=== PATIENT | female | born 1945 | race Caucasian/White ===

== ENCOUNTER 2018-06-06 06:48 | Day surgery (SDC) | payer MEDICARE ==
--- NOTE | 2018-06-06 10:30 | OP ---
DATE OF PROCEDURE: 06/06/2018 MEDICAL ASSISTANT PER DIEM: With no boilermaker's assistant. INDICATION: Hydrocephalus. DIAGNOSIS: Hydrocephalus. PROCEDURE: Capped ventriculoperitoneal shunt. ANESTHESIA: None. DESCRIPTION OF PROCEDURE: In the day stay area, right frontal region of her scalp was prepped and draped at the location of her shunt reservoir. A butterfly needle was carefully placed in a sterile technique into the reservoir and a total of 45 mL of clear spinal fluid was withdrawn. The needle was removed and the area cleansed. There were no known procedural complications. Job ID: [id number]
== END 2018-06-06 08:45 | disposition home or self-care (01) ==
LOC: SDC 06:48
PROVIDERS: ATTEND Neurological Surgery
PROC: 00J Central Nervous System and Cranial Nerves, Inspection (ICD-10-PCS; principal; 2018-06-06)
DX: G91.9 Hydrocephalus, unspecified (principal)
CPT/HCPCS: 62272

== ENCOUNTER 2018-06-23 20:44 | Inpatient (IN) | payer MEDICARE ==
[2018-06-23 21:32] LABS: #Basophils 0.1 thou/uL (0.0-0.2); #Eosinphils 0.1 thou/uL (0.0-0.7); #Lymphocytes 2.2 thou/uL (1.20-3.40); #Monocytes 0.6 thou/uL (0.11-0.59); #Neutrophils 8.1 thou/uL (1.40-6.50); %Basophils 0.6 % (0.0-1.0); %Eosinophils 0.8 % (0.0-10.0); %Monocytes 5.5 % (0.0-10.0); Hemoglobin 15.3 g/dL (12.0-16.0); Mean Corpuscular HGB CONC 32.4 g/dL (32.0-36.0); Mean Corpuscular Hemoglobin 29.4 pg (27.0-31.0); Mean Corpuscular Volume 90.9 fL (78.0-98.0); Mean Platelet Volume 6.8 fL (7.4-10.4); Platelet Count 373 thou/uL (130-400); RBC Distribution Width 12.1 % (11.5-14.5); White Blood Cell (WBC) Count 11.1 thou/uL (4.8-10.8)
[2018-06-23 21:53] LABS: ALT (SGPT) 8 U/L (8-55); AST (SGOT) 12 U/L (5-34); Alkaline Phosphatase 77 U/L (40-150); Anion Gap 14 mmol/L (10-20); BUN (Urea Nitrogen) 18 mg/dL (9.8-20.1); Bilirubin, Total 0.4 mg/dL (0.2-1.2); Calc. Creatinine Clearance 0 mL/min (70-130); Calcium 9.7 mg/dL (7.8-10.44); Carbon Dioxide 21 mmol/L (23-31); Chloride 109 mmol/L (98-107); Estimated GFR-MDRD 66; Globulin 3.4 g/dL (2.4-3.5); Glucose 105 mg/dL (83-110); Potassium 4.5 mmol/L (3.5-5.1); Protein, Total 7.4 g/dL (6.0-8.3); Sodium 139 mmol/L (136-145)
[2018-06-23 22:13] LABS: CK (CPK) 47 U/L (29-168); Lipase 33 U/L (8-78)
[2018-06-23 22:15] LABS: Bacteria/HPF 4+ HPF (None Seen); Bilirubin Negative (Negative); Blood, Urine Moderate (Negative); Clarity TURBID (Clear); Glucose, Urine (Dipstick) Negative (Negative); Leukocyte Moderate (Negative); Nitrite Positive (Negative); Protein, Urine (Dipstick) Negative (Neg-Trace); Specific Gravity, Urine 1.024 (1.002-1.036); Squamous Epithelial 0-3 HPF (0-3); Urobilinogen 0.2 mg/dL (0.2-1.0); Yeast-AUWi Flag 5.6 (0-25.0)
[2018-06-23 22:24] LABS: Hyaline Casts/LPF 0-3 HYALINE CAST LPF (0-3 Hyaline)
[2018-06-23] MEDS ORDERED: cefTRIAXone\\ROCEPHIN 1 GM VIAL ONE (22:38)
--- NOTE | 2018-06-23 23:12 | RAD ---
PORTABLE AP CHEST RADIOGRAPH: Date: 06-23-18 History: Altered mental status, weakness. Comparison: None available. FINDINGS: Cardiac silhouette is magnified by projection. The pulmonary vasculature is within normal limits. Min imal patchy density seen at the lateral left lung base which may be related to focal areas of pneumon ia or aspiration pneumonitis. The lungs are otherwise clear. Ventriculoperitoneal shunt catheter seen overlying the chest. Vascular calcifications seen in the thoracic aorta. IMPRESSION: Pneumonia versus aspiration pneumonitis left lung base. Follow up to resolution is recommended. POS: MARTIN
--- NOTE | 2018-06-24 00:39 | PDOC.FPRHP ---
- History of Present Illness Chief Complaint: AMS, catatonic History of Present Illness: 72 yo female here for decreased activity over the past 2 days. Daughter, Jessica, is providing the history as patient is not answering questions or following commands. Patient Has history of ventricular shunt for for what sounds like hydrocephalus in 2009. Daughter reports that the current worsening started in 2017 when she received a new January 2018. Since that time, she has had episodes altered mentation, sometimes she is able to have abbreviated conversations, other times she refuses to get out of bed and answer questions. She is a patient of Dr. Morillo since January 2018 as PCP and has also been seeing Dr. Linder for shunt. Apparently she had about 45cc fluid drained at the end of May 2018 after having problems with activity level. After that, her mood and activity improved but gradually became less and less interactive. During this time she has had decreased eating and fluid intake. ED Course: in the ER, patient received rocephin for UTI and 1L NS. - Allergies/Adverse Reactions Allergies Allergy/AdvReac Type Severity Reaction Status Date / Time No Known Drug Allergies Allergy Verified 06/24/18 05:20 - Home Medications Medication Instructions Recorded Confirmed Type Citalopram Hydrobromide 06/24/18 History [Citalopram HBr] - History PMHx: hydrocephaly, depression PSHx: ACCESS ASSOC shunt 2009 then again 2017 FHx:none Social: lives with daughter - Review of Systems ROS unobtainable: due to mental status - Vital signs BP: 143/88 HR: 68 RR: 20 Tmax: 99.1 Pox: 94% on RA Wt: 86kg - Physical Exam Constitutional: well developed -Constitutional: limited exam 2/2 patient noncooporation with following commands -HEENT: difficulty to examine 2/2 patient noncompliance Neck: no JVD Heart: RRR, normal S1/S2, no murmurs/rubs/gallops Lungs: CTAB, no respiratory distress Abdomen: bowel sounds present -Abdomen: guarding, patient writhing when palpating Musculoskeletal: normal structure Heme/Lymphatic: no unusual bruising or bleeding -Psychiatric: nonresponsive to questions or commands FMR H&P: Results - Labs Result Diagrams: 06/23/18 21:26 06/23/18 21:26 Lab results: WBC 11.1 thou/uL (4.8-10.8) H 06/23/18 21:26 Hgb 15.3 g/dL (12.0-16.0) 06/23/18 21:26 Hct 47.2 % (36.0-47.0) H 06/23/18 21:26 MCV 90.9 fL (78.0-98.0) 06/23/18 21:26 Plt Count 373 thou/uL (130-400) 06/23/18 21:26 Neutrophils % 73.0 % (42.0-75.0) 06/23/18 21:26 Sodium 139 mmol/L (136-145) 06/23/18 21:26 Potassium 4.5 mmol/L (3.5-5.1) 06/23/18 21:26 Chloride 109 mmol/L (98-107) H 06/23/18 21:26 Carbon Dioxide 21 mmol/L (23-31) L 06/23/18 21:26 BUN 18 mg/dL (9.8-20.1) 06/23/18 21:26 Creatinine 0.85 mg/dL (0.6-1.1) 06/23/18 21:26 Glucose 105 mg/dL (83-110) 06/23/18 21:26 Lactic Acid 1.0 mmol/L (0.5-2.2) 06/23/18 21:26 Calcium 9.7 mg/dL (7.8-10.44) 06/23/18 21:26 Total Bilirubin 0.4 mg/dL (0.2-1.2) 06/23/18 21:26 AST 12 U/L (5-34) 06/23/18 21:26 ALT 8 U/L (8-55) 06/23/18 21:26 Alkaline Phosphatase 77 U/L (40-150) 06/23/18 21:26 Creatine Kinase 47 U/L (29-168) 06/23/18 21:26 B-Natriuretic Peptide 39.1 pg/mL (0-100) 06/23/18 21:26 Serum Total Protein 7.4 g/dL (6.0-8.3) 06/23/18 21:26 Albumin 4.0 g/dL (3.4-4.8) 06/23/18 21:26 Lipase 33 U/L (8-78) 06/23/18 21:26 Urine Ketones Negative mg/dL (Negative) 06/23/18 22:00 Urine Blood Moderate (Negative) H 06/23/18 22:00 Urine Nitrite Positive (Negative) H 06/23/18 22:00 Ur Leukocyte Esterase Moderate (Negative) H 06/23/18 22:00 Urine RBC 7-10 HPF (0-3) H 06/23/18 22:00 Urine WBC Greater Than 50-TNTC HPF (0-3) H 06/23/18 22:00 Ur Squamous Epith Cells 0-3 HPF (0-3) 06/23/18 22:00 Urine Bacteria 4+ HPF (None Seen) H 06/23/18 22:00 - Radiology Interpretation Chest x-ray Status: image reviewed by me (Radiologist read: pneumonia vs aspiration pneumonitis), report reviewed by me FMR H&P: A/P - Problem List (1) ACCESS ASSOC (ventriculoperitoneal) shunt status Current Visit: Yes Status: Acute (2) UTI (urinary tract infection) Current Visit: Yes Status: Acute (3) Depression Current Visit: Yes Status: Acute Code(s): F32.9 - MAJOR DEPRESSIVE DISORDER , SINGLE EPISODE, UNSPECIFIED - Plan #ACCESS ASSOC shunt malfunction -Frank (Neurosurgery PA with Dr. Linder) was consulted from the ER, will evaluate the patient in the morning -continue to monitor on stroke #UTI -given rocephin in the ER -urine and blood cultures pending -will continue with rocephin for now #depression -continue home meds #pneumonia vs aspiration pneumonitis -Left lateral lobe involvement -will get procalcitonin -concern for aspiration vs involvement with the shunt, however the shunt stays on the right side of the chest down into the abd so lower suspicion for involvement -possibly start on unasyn pending procal Disposition/LOS: admit to stroke at least 2 midnights FMR H&P: Upper Level - Plan Date/Time: 06/24/18 0030 Addendum - Attending - Attending Attestation Date/Time: 06/23/18 9310 I personally evaluated the patient and discussed the management with Dr. Croft I agree with the History, Examination, Assessment and Plan documented above with any addition or exceptions noted below. 72 yo female with history of hydrocephalus requiring ACCESS ASSOC shunt presents for AMS for > 48 hours. Daughter is historian and healthcare administration internship. Reports patient has good days and bad days. Sometimes she is able to carry conversations and others she is not aware of anything. Reports decline started in Jan 2017 with replacement of ACCESS ASSOC shunt. Has required ACCESS ASSOC draining on a few occasions. Last performed on due to malfunctioning. Notes cognitive improvement with draining. Denies fever, chills , URI symptoms, symptoms, and GI symptoms. VS reviewed. Labs reviewed. Imaging reviewed. Will admit to medical. Dr. Linder to see in AM. Will follow up on his recommendations. ACCESS ASSOC shunt follow through intact and appears to be functional. Large calcified pelvic mass. Possible fibroid. Would obtain TVUS to further evaluate vs MRI. Urine culture pending. Will treat with Rocephin. Monitor. Does not appear septic. Pro malgorzata WNL. Adjust home meds as needed. Tom
[2018-06-24] MEDS: Lactated Ringer's 1,000 ML IV SCH ×3 (05:15→22:57)
--- NOTE | 2018-06-24 05:55 | PDOC.FM ---
- Subjective Subjective: Patient answers with yes/no nods. Denies any pain this AM. - Objective Result Diagrams: 06/23/18 21:26 06/23/18 21:26 Phys Exam - Physical Examination appears drowsy and lethargic, unable to follow simple commands dry mucous membranes, difficult to visualize Neck: no nodes, supple Respiratory: no wheezing, clear to auscultation bilateral Cardiovascular: RRR, no significant murmur Gastrointestinal: soft, non-tender, no distention, positive bowel sounds Musculoskeletal: no edema, pulses present Deviation from normal: lethargic, non-verbal responses (nods/shakes head only) Dx/Plan (1) HYDRAULIC BILLET MAKER (ventriculoperitoneal) shunt status Status: Acute (2) UTI (urinary tract infection) Status: Acute (3) Depression Code(s): F32.9 - MAJOR DEPRESSIVE DISORDER, SINGLE EPISODE, UNSPECIFIED Status : Chronic - Plan Plan: HYDRAULIC BILLET MAKER shunt malfunction - Frank (Neurosurgery PA with Dr. Linder) was consulted from the ER 06/23, will evaluate the patient this morning, appreciate recommendations - monitor on stroke unit - CT head shows ventriculomegaly - NPO, LR @ 150 ml/hr UTI -given rocephin in the ER -urine and blood cultures pending -will continue with IV rocephin Depression -continue home meds Pneumonia vs aspiration pneumonitis -Lungs BCTA on exam -Left lateral lobe involvement on CXR -Procalcitonin negative, hold antibiotic for now -Concern for aspiration vs involvement with the shunt, however the shunt stays on the right side of the chest down into the abd so lower suspicion for involvement Disposition/LOS: admit to stroke at least 2 midnights Code status: Full PCP: Ilia dvt ppx: lovenox
--- NOTE | 2018-06-24 07:10 | CT ---
CT HEAD WITHOUT CONTRAST: 06/23/2018 HISTORY: Altered mental status and weakness. COMPARISON: None available. FINDINGS: There is a ventriculoperitoneal shunt catheter, entering via a right frontal approach, with the tip t erminating in the most anterior aspect of the third ventricle. There is evidence of ventriculomegaly with dilatation of the lateral ventricles, as well as the third ventricle. There is diminished attenuation in the periventricular white matter, which is nonspecific, but may be attributable to chronic small vessel ischemic changes. This is not thought to be related to transep endymal flow of CSF. No acute cortical infarction or hemorrhage is seen. There is no midline shift or mass effect. The visualized paranasal sinuses and mastoid air cells are clear. No calvarial fracture is seen. IMPRESSION: Ventriculomegaly/hydrocephalus with dilatation of the lateral ventricles, as well as the third ventri gurmeet. Ventriculoperitoneal shunt catheter is noted in place, with the tip terminating at the anterior aspect of the third ventricle. POS: MARTIN
--- NOTE | 2018-06-24 07:14 | RAD ---
SHUNTOGRAM: 06/23/2018 HISTORY: Patient with ventriculoperitoneal shunt catheter I place and altered mental status. COMPARISON: None available. FINDINGS: There is a right-sided ventriculoperitoneal shunt catheter, entering in a right frontal approach. Th e ventriculoperitoneal shunt catheter appears intact throughout its course. The tip overlies the pelv is, although the tip is not well seen due to the catheter tip overlying a large calcification in the pelvis, probably related to a calcified uterine fibroid. There is atelectasis present at the left lung base. There is mild elevation of the right hemidiaphra gm. The bowel gas pattern is nonspecific. Phleboliths overly the pelvis. IMPRESSION: Right-sided ventriculoperitoneal shunt catheter, which does appear intact throughout its course. The tip overlies the pelvis, as described above. POS: MARTIN
[2018-06-24] MEDS ORDERED: Enoxaparin Sodium 40 MG/0.4 ML SYRINGE ONE (08:57)
[2018-06-24] MEDS: Enoxaparin Sodium 40 MG/0.4 ML SYRINGE SC SCH (09:03)
--- NOTE | 2018-06-24 12:50 | HP ---
HISTORY OF PRESENT ILLNESS: I have examined the patient. I have discussed the case with Dr. Jorge Croft. Ms. Roberts is a 72-year-old white female, who in the past has had a PAPER COATING SUPERVISOR shunt placement for hydrocephalus. For the last 2 days, she has been experiencing not answering questions or following commands. She was brought to the ER, where CT found some ventricular hypertrophy and Neurosurgery had been consulted. PHYSICAL EXAMINATION: VITAL SIGNS: Her blood pressure is 140/80, her heart rate is 65 and regular, she is afebrile, her room air pulse ox is 94%. GENERAL: She will not answer questions and seems to be somewhat confused. EARS, NOSE, AND THROAT: No erythema or exudate. NECK: Supple. CARDIAC: Heart rhythm regular. No gallop or murmur noted. LUNGS: Clear. No rales or wheezes. ABDOMEN: Flat and soft. No guarding, rebound, or rigidity. NEUROLOGIC: There are no focal deficits, but the patient does seem confused and unable to understand questions put to her. LABORATORY DATA: CBC; white count 11,100, hemoglobin 15.3, and hematocrit 47.2 with an MCV of 91. Chemistries; sodium is 139, potassium 4.5, chloride 109, bicarb 21, BUN 18, and creatinine 0.85. Her brain CT shows ventriculomegaly/hydrocephalus with dilatation of the lateral ventricles as well as the 3rd ventricle. The PAPER COATING SUPERVISOR shunt is noted to be in place with the tip terminating at the anterior aspect of the 3rd ventricle. ASSESSMENT: Mental confusion and altered mental status, possibly secondary to ventriculoperitoneal shunt catheter obstruction. PLAN: We have consulted Neurosurgery and await the recommendations. Job ID: [id number]
--- NOTE | 2018-06-24 13:31 | CON ---
DATE OF CONSULTATION: 06/24/2018 SERVICE: Neurosurgical Service. HISTORY OF PRESENT ILLNESS: Ms. Roberts is a 72-year-old woman, who was brought in to [facility] late last evening for change in level of consciousness and altered mental status. She was found to have UTI, but is also known to our practice for chronic hydrocephalus with possible shunt malfunction. Dr. Linder performed a high-volume shunt tap procedure in day stay roughly two weeks ago that according to the daughter, resulted in profound improvement in some of her level of consciousness and cognitive function and social interaction. For me at bedside today, she seems to be at her baseline state from before that procedure where she is mostly flat affected with only single word responses, although appropriate to my questions. She does tend to make eye contact with me at any point. She is able to move all four extremities just reluctantly and infrequently. Plan after her procedure from two weeks ago was to have her back to the hospital at some point for external ventricular drain placement to attempt to drain enough fluid from her ventricles to hopefully initiate whatever little compliances left in the ventricular mckee to begin shunting on her own. We had not yet had her back in followup, so the recommendation at this time is that we proceed with this particular procedure tomorrow. She will need to be admitted to the ICU overnight, and then tomorrow, we will plan to place EVD for intermittent drainage. We will discuss with Dr. Linder. Job ID: [id number]
[2018-06-24 15:26] VITALS: BMI 32.5
[2018-06-24] MEDS ORDERED: cefTRIAXone\\ROCEPHIN 1 GM in Sodium Chloride 0.9% 100 ML IVPB SCH (21:00)
--- NOTE | 2018-06-25 06:23 | PDOC.FM ---
- Subjective Subjective: Patient is more alert, answering questions in full sentences today, states she is nervous about the procedure today. Denies pain - Objective Vital Signs & Weight: Vital Signs (12 hours) Temp Pulse Resp BP Pulse Ox 06/25/18 04:02 97.8 F 61 20 128/76 96 06/25/18 00:00 98.2 F 60 20 133/71 97 06/24/18 20:11 97.6 F 76 20 112/70 96 Weight Weight 86 kg Result Diagrams: 06/23/18 21:26 06/23/18 21:26 Phys Exam - Physical Examination Constitutional: NAD Mentation seems much more normal this morning, speaks full sentences Neck: no nodes, supple Respiratory: no wheezing, clear to auscultation bilateral Cardiovascular: RRR, no significant murmur Gastrointestinal: soft, non-tender, no distention, positive bowel sounds Musculoskeletal: no edema, pulses present Neurological: moves all 4 limbs Psychiatric: normal affect Deviation from normal: Alert to person, city (not hospital), not oriented to time (month, day,year Skin: no rash, normal turgor Dx/Plan (1) INTERNATIONAL TRADE COMPLIANCE MANAGER (ventriculoperitoneal) shunt status Status: Acute (2) UTI (urinary tract infection) Status: Acute (3) Depression Code(s): F32.9 - MAJOR DEPRESSIVE DISORDER, SINGLE EPISODE, UNSPECIFIED Status : Chronic - Plan Plan: INTERNATIONAL TRADE COMPLIANCE MANAGER shunt malfunction - CT head shows ventriculomegaly - Frank (Neurosurgery PA with Dr. Linder) was consulted from the ER 06/23, will evaluate the patient this morning, appreciate recommendations -External Ventricular Drain placement today - NPO, LR @ 150 ml/hr - Patient's mentation much more alert today, speaking in full sentences and answering appropriately, responds to commands. AOx1 UTI -given rocephin in the ER -blood cultures pending - urine culture not collected, consider redrawing today -will continue with IV rocephin Depression -continue home meds Pneumonia vs aspiration pneumonitis -Lungs BCTA on exam -Left lateral lobe involvement on CXR -Procalcitonin negative, hold antibiotic for now -Concern for aspiration vs involvement with the shunt, however the shunt stays on the right side of the chest down into the abd so lower suspicion for involvement Large calcification in Pelvis - Seen on shuntogram, likely 2/2 calcified uterine fibroid - Recommend outpatient follow up Disposition/LOS: > 2 midnights Code status: Full PCP: Ilia dvt ppx: lovenox
[2018-06-25] MEDS: Lactated Ringer's 1,000 ML IV SCH ×2 (06:52→11:05)
--- NOTE | 2018-06-25 09:52 | PRG ---
DATE OF SERVICE: 06/25/2018 SUBJECTIVE: Ms. Tisha Roberts is a 72-year-old female, known to us for an outpatient evaluation for normal-pressure hydrocephalus. She had a shunt placed on the right side and has been revised twice, all of these were performed elsewhere. Despite placement of her shunt and shunt setting at zero, she continues to have ventriculomegaly. Clinically, she oftentimes is minimally interactive. She will have 1 word answers on occasion. I performed a high-volume tap of her shunt a few weeks ago, where she had dramatic overall improvement in her symptoms. At that time, I discussed with her and her daughter, a placement of a ventriculostomy to try to reduce the size of her ventricles as I believe the underlying problem is poor ventricular compliance rather than a malfunctioning shunt. She was admitted due to UTI 2 days ago. We moved her to the unit today for the purposes of the placement of this ventriculostomy. I have discussed this in detail with the patient as well as her daughter. I have also discussed with him all risks, benefits, and alternatives to treatment, and they have offered informed consent. The plan will be to obtain her in the ICU over the next 2 to 3 days while we drain spinal fluid and obtain serial CT imaging. Job ID: [id number]
--- NOTE | 2018-06-25 11:55 | PRG ---
DATE OF SERVICE: 06/25/2018 SUBJECTIVE: Ms. Roberts has just returned from placement of a ventricular drain. She is still very somnolent from general anesthesia. Her vital signs are stable. We will continue to follow with neurosurgery service. Job ID: [id number]
[2018-06-25] MEDS ORDERED: CEFAZOLIN 2 GM in Sodium Chloride 0.9% 100 ML IVPB SCH ×2 (12:00→18:00)
[2018-06-25] MEDS: Enoxaparin Sodium 40 MG/0.4 ML SYRINGE SC SCH (12:37)
--- NOTE | 2018-06-25 13:43 | OP ---
DATE OF PROCEDURE: 06/25/2018 PROCEDURE PERFORMED: External ventriculostomy placement. INDICATION: Hydrocephalus and altered mental status. CLINICIAN: Nico Marie PA-C SEDATION: Conscious sedation with anesthesia, Estela Rockwell CRNA. DESCRIPTION OF PROCEDURE: Ms. Roberts was administered IV conscious sedation for the purpose of the procedure. A time-out was performed preprocedurely and Rosalina's point was identified on the left frontal scalp. This was marked and then infiltrated with 1% lidocaine 1.5 mL. A 15 blade knife was used to incise the skin down to the level of the skull. A cranial twist drill was used to create a cranial twist jake hole at Rosalina's point. The dura was pierced with blunt instrumentation and an external ventriculostomy catheter was placed at a depth of 6 cm with a slow egress of clear CSF. This was attached to the [place] drain and adhered to the scalp with 2-0 silk. The wound was closed with 3-0 Ethilon. The [place] drain set at 0 cm of water and leveled out to the level of the tragus. The patient started to slowly arouse at the end of the procedure. Blood loss was minimal. The patient tolerated the procedure well. At the end of this procedure, secondary to extraordinarily low-pressure conditions within the ventricle, sterile technique was used and 30 mL of CSF were drained actively via the port of the [place] drainage system. Job ID: [id number]
[2018-06-25] MEDS: CEFAZOLIN 2 GM in Premix Bag 1 BAG IVPB SCH (17:44)
--- NOTE | 2018-06-26 00:01 | CON ---
DATE OF CONSULTATION: 06/25/2018 HISTORY OF PRESENT ILLNESS: Ms. Roberts is a 72-year-old female. She had a ventriculoperitoneal shunt placed in the past for hydrocephalus. Apparently, she has had a change in her mental status, was felt to have shunt malfunction and subsequently has been admitted. She was transferred to the ICU for external drain placement this morning. I was consulted to assist in her management in the ICU. When I saw her, she had been seen by Anesthesia and Neurosurgery and had a drain placed under conscious sedation. She has not been in the hospital here prior to this. She tells me that she had the shunt placed in [place]. She was actually eating lunch when I saw her. She may not be giving an accurate history about the location of the surgery originally for hydrocephalus. PAST MEDICAL HISTORY: Otherwise, unremarkable. SOCIAL HISTORY: She is a nonsmoker and nondrinker. FAMILY HISTORY: Unknown. ALLERGIES: SHE HAS NO REPORTED DRUG ALLERGIES. REVIEW OF SYSTEMS: 10 point review of systems completed, otherwise, negative. PHYSICAL EXAMINATION: GENERAL: She is surprisingly in no distress. She has an external drain in place. VITAL SIGNS: Heart rate 67, blood pressure 139/70, respiratory rate is 20, oximetry is 96%. HEENT: Pupils are equal. Sclerae are anicteric. She answers questions fairly promptly. She moves her extremities equally. HEAD: Unremarkable. NECK: Unremarkable. LUNGS: Clear. HEART: Regular rhythm. S1 and S2 are normal. ABDOMEN: Soft and nontender. EXTREMITIES: Without clubbing, cyanosis, or edema. LABORATORY DATA: White count 11.1, hemoglobin 15.3, platelets 373. Sodium 139, potassium 4.5, chloride 109, bicarb 29, BUN 18, creatinine 0.85. IMPRESSION: Malfunctioning ventriculoperitoneal shunt, now with an external drain in place, clinically improved by what the nurses tell me. We will be happy to follow the other physicians caring for. TIME SPENT: This is a 70-minute consult, with greater than 50% of the time spent on the unit coordinating care. Job ID: [id number] MTDD
[2018-06-26] MEDS: CEFAZOLIN 2 GM in Premix Bag 1 BAG IVPB SCH ×3 (02:57→17:27)
--- NOTE | 2018-06-26 06:23 | PDOC.FM ---
- Subjective Subjective: Patient arousable with shaking, but will not follow commands. Pulls sheet closer to her body when you try to arouse her. Will not answer questions. - Objective Vital Signs & Weight: Vital Signs (12 hours) Temp Pulse Ox 06/26/18 04:00 98.4 F 06/26/18 00:00 98.2 F 06/25/18 20:00 97.8 F 06/25/18 19:20 97 Weight Admit Weight 86 kg Weight 86 kg Most Recent Monitor Data Heart Rate from ECG 69 NIBP 110/69 NIBP BP-Mean 82 Respiration from ECG 17 SpO2 93 I&O: 06/24/18 06/25/18 06/26/18 06:59 06:59 06:59 Intake Total 1800 1892 Output Total 1979 Balance 1800 -88 Result Diagrams: 06/23/18 21:26 06/23/18 21:26 Phys Exam - Physical Examination Constitutional: NAD Respiratory: no wheezing, clear to auscultation bilateral Cardiovascular: RRR, no significant murmur Gastrointestinal: soft, non-tender, no distention Musculoskeletal: no edema, pulses present Does not follow commands,lethargic, arousable with shaking Skin: normal turgor, cap refill <2 seconds Dx/Plan (1) HOSEMAN (ventriculoperitoneal) shunt status Status: Acute (2) UTI (urinary tract infection) Status: Acute (3) Depression Code(s): F32.9 - MAJOR DEPRESSIVE DISORDER, SINGLE EPISODE, UNSPECIFIED Status : Chronic - Plan Plan: HOSEMAN shunt malfunction - CT head shows ventriculomegaly - Frank (Neurosurgery PA with Dr. Linder) was consulted from the ER 06/23, appreciate recommendations -External Ventricular Drain placed 06/25 -Patient will need monitoring in ICU for next 2-3 days - Repeat CT brain, read pending - Pt will not follow commands or speak this AM, arousable with shaking, [place] aware - Discontinued IVF as patient tolerating PO yesterday, may restart today if patient's mental status does not improve UTI - given rocephin in the ER - blood cultures pending - urine culture not collected - continue Ancef Depression -continue home meds Pneumonia vs aspiration pneumonitis -Lungs BCTA on exam -Left lateral lobe involvement on CXR -Procalcitonin negative, hold antibiotic for now -Concern for aspiration vs involvement with the shunt, however the shunt stays on the right side of the chest down into the abd so lower suspicion for involvement Large calcification in Pelvis - Seen on shuntogram, likely 2/2 calcified uterine fibroid - Recommend outpatient follow up Disposition/LOS: > 2 midnights Code status: Full PCP: Ilia dvt ppx: lovenox
--- NOTE | 2018-06-26 08:30 | CT ---
PRELIMINARY REPORT/[facility]/EMERGENCY AFTER HOURS PROCEDURE: EXAM: CT Head Without Contrast EXAM DATE/TIME: 06/26/2018 4:03 AM CLINICAL HISTORY: 72 years old, female; Condition or disease; Other: Hydrocephalus; Prior surgery; Surgery date: Postop erative (0-2 days); Patient HX: Ccu. Eval hydrocephalus. S/P drain. Change in mental status TECHNIQUE: Axial computed tomography images of the head/brain without contrast. COMPARISON: CT Brain WO Con 06/23/2018 10:52 PM FINDINGS: Brain: No mass effect, midline shift or extra axial fluid collections. Greenberg-white matter differentiat ion is normal. Ventricles: Stable hydrocephalus in the lateral and third ventricles. Right frontal ventriculostomy i n stable position with its tip in the third ventricle. There has been interval placement of a left fr ontal ventriculostomy with its tip in the left lateral ventricle, near the foramen of Monro. Mild pneumocep halus and air in the anterior horn of the ventricle is consistent with the placement of the catheter. There is trace blood in the occipital horn of the left lateral ventricle. Bones/joints: Unremarkable. No acute fracture. Sinuses: Visualized sinuses are unremarkable. No acute sinusitis. Mastoid air cells: Visualized mastoid air cells are unremarkable. No mastoid effusion. Soft tissues: Unremarkable. IMPRESSION: Stable hydrocephalus after placement of a new left frontal ventriculostomy. Postsurgical pneumocephal us and air and blood in the left lateral ventricle. Thank you for allowing us to participate in the care of your patient. Dictated and Authenticated by: Dalton Bolanos MD 06/26/2018 5:20 AM Central Time ([place] & [place]) FINAL REPORT CT OF HEAD NONCONTRAST: COMPARISON: 06/23/2018. FINDINGS/IMPRESSION: Agree with the preliminary interpretation provided above. Redemonstration of moderate to severe hydrocephalus. A mild volume of intraventricular air and hemor rhage is demonstrated. Postprocedural pneumocephalus has developed. Interval placement of left frontal approach ventricular catheter. Recommend continued imaging followup. POS: MARTIN
[2018-06-26] MEDS: Enoxaparin Sodium 40 MG/0.4 ML SYRINGE SC SCH (09:09)
[2018-06-26 10:11] LABS: #Basophils 0.2 thou/uL (0.0-0.2); #Eosinphils 0.1 thou/uL (0.0-0.7); #Lymphocytes 2.6 thou/uL (1.20-3.40); #Monocytes 0.5 thou/uL (0.11-0.59); #Neutrophils 4.2 thou/uL (1.40-6.50); %Eosinophils 1.4 % (0.0-10.0); %Lymphocytes 34.7 % (21.0-51.0); %Monocytes 6.9 % (0.0-10.0); Mean Corpuscular HGB CONC 32.6 g/dL (32.0-36.0); Mean Corpuscular Hemoglobin 29.6 pg (27.0-31.0); Mean Corpuscular Volume 90.7 fL (78.0-98.0); Mean Platelet Volume 7.2 fL (7.4-10.4); Platelet Count 332 thou/uL (130-400); RBC Distribution Width 12.2 % (11.5-14.5); Red Blood Cell (RBC) Count 4.72 mill/uL (4.20-5.40); White Blood Cell (WBC) Count 7.6 thou/uL (4.8-10.8)
[2018-06-26 10:24] LABS: Anion Gap 14 mmol/L (10-20); BUN (Urea Nitrogen) 9 mg/dL (9.8-20.1); Calc. Creatinine Clearance 79 mL/min (70-130); Calcium 9.5 mg/dL (7.8-10.44); Carbon Dioxide 22 mmol/L (23-31); Chloride 108 mmol/L (98-107); Estimated GFR-MDRD 65; Glucose 97 mg/dL (83-110); Potassium 3.8 mmol/L (3.5-5.1); Sodium 140 mmol/L (136-145)
[2018-06-26] MEDS: Lactated Ringer's 1,000 ML IV SCH (12:15)
--- NOTE | 2018-06-26 13:10 | PRG ---
DATE OF SERVICE: 06/26/2018 Despite her recent ventricular manipulation, Ms. Roberts continues to have episodes, where she is awake and alert versus becoming virtually nonverbal. We will continue to follow with the Neurosurgery Service. This morning, her vital signs are all stable. Her electrolytes are normal. CBC is normal. Job ID: [id number]
--- NOTE | 2018-06-26 13:26 | PRG ---
DATE OF SERVICE: 06/26/2018 Ms. Roberts after doing sort of extraordinarily well yesterday and tolerating the external ventricular drain and 30 mL of drainage seems to have returned back to her baseline, semi catatonic state, she does not respond to me nearly as much nor to the nursing staff and is not talking at the moment. CT scan reveals some intraventricular air and slight pneumocephalus, discussed with Dr. Linder and we will proceed with drawing 40 more mL off and then see how she does over the remainder of the next day and re-evaluate in the morning. Job ID: [id number]
--- NOTE | 2018-06-26 13:28 | PRG ---
DATE OF SERVICE: 06/26/2018 SUBJECTIVE: Ms. Roberts is clinically unchanged. She had her drain clamped this morning. She will have re-evaluation later today. OBJECTIVE: VITAL SIGNS: She is afebrile. Heart rate is 60, blood pressure 142/74, oximetry is 95% on room air. LUNGS: Clear. HEART: Regular rhythm. ABDOMEN: Soft. LABORATORY DATA: White count is 7.6, hemoglobin 14, platelets 332. Sodium 140, potassium 3.8, chloride 108, bicarb 22, BUN 9, creatinine 0.86. IMPRESSION: Status post external ventricular drain placement for malfunctioning ventriculoperitoneal shunt, clinically stable. We will continue to follow. Job ID: [id number]
[2018-06-27] MEDS: Lactated Ringer's 1,000 ML IV SCH ×2 (02:19→16:49)
[2018-06-27] MEDS: CEFAZOLIN 2 GM in Premix Bag 1 BAG IVPB SCH ×3 (02:20→17:29)
[2018-06-27 05:29] LABS: #Basophils 0.1 thou/uL (0.0-0.2); #Eosinphils 0.2 thou/uL (0.0-0.7); #Lymphocytes 2.4 thou/uL (1.20-3.40); #Monocytes 0.5 thou/uL (0.11-0.59); #Neutrophils 3.8 thou/uL (1.40-6.50); %Basophils 0.9 % (0.0-1.0); %Eosinophils 2.4 % (0.0-10.0); %Lymphocytes 34.8 % (21.0-51.0); %Monocytes 7.4 % (0.0-10.0); %Neutrophils 54.5 % (42.0-75.0); Hemoglobin 13.8 g/dL (12.0-16.0); Mean Corpuscular HGB CONC 33.2 g/dL (32.0-36.0); Mean Corpuscular Hemoglobin 30.1 pg (27.0-31.0); Mean Corpuscular Volume 90.8 fL (78.0-98.0); Mean Platelet Volume 6.9 fL (7.4-10.4); Platelet Count 312 thou/uL (130-400); Red Blood Cell (RBC) Count 4.59 mill/uL (4.20-5.40); White Blood Cell (WBC) Count 6.9 thou/uL (4.8-10.8)
[2018-06-27 05:49] LABS: Anion Gap 12 mmol/L (10-20); BUN (Urea Nitrogen) 8 mg/dL (9.8-20.1); Calc. Creatinine Clearance 90 mL/min (70-130); Calcium 9.3 mg/dL (7.8-10.44); Carbon Dioxide 25 mmol/L (23-31); Chloride 108 mmol/L (98-107); Estimated GFR-MDRD 75; Glucose 89 mg/dL (83-110); Potassium 3.7 mmol/L (3.5-5.1); Sodium 141 mmol/L (136-145)
--- NOTE | 2018-06-27 06:23 | PDOC.FM ---
- Subjective Subjective: Patient GCS of 8 this morning, still no verbal responses. Only localizing to pain. See Physical exam. - Objective Vital Signs & Weight: Vital Signs (12 hours) Temp Pulse Ox 06/27/18 04:00 98.8 F 06/27/18 00:00 98.4 F 06/26/18 20:00 98.2 F 06/26/18 19:45 95 Weight Admit Weight 86 kg Weight 86 kg Most Recent Monitor Data Heart Rate from ECG 63 NIBP 152/83 NIBP BP-Mean 106 Respiration from ECG 25 SpO2 93 I&O: 06/25/18 06/26/18 06/27/18 06:59 06:59 06:59 Intake Total 1800 1892 1541 Output Total 1980 1075 Balance 1800 -88 466 Result Diagrams: 06/27/18 05:12 06/27/18 05:12 Phys Exam - Physical Examination Not responding to voice HEENT: PERRLA, moist MMs Respiratory: no wheezing, clear to auscultation bilateral Cardiovascular: RRR, no significant murmur Gastrointestinal: soft, non-tender Musculoskeletal: no edema, pulses present GCS 8. Localizes to sternal rub. Does not open eyes. No verbal response. Skin: normal turgor, cap refill <2 seconds Dx/Plan (1) Pneumocephalus Code(s): G93.89 - OTHER SPECIFIED DISORDERS OF BRAIN Status: Acute (2) SURVEILLANCE SUPERVISOR (ventriculoperitoneal) shunt status Status: Acute (3) UTI (urinary tract infection) Status: Acute (4) Depression Code(s): F32.9 - MAJOR DEPRESSIVE DISORDER, SINGLE EPISODE, UNSPECIFIED Status : Chronic - Plan Plan: SURVEILLANCE SUPERVISOR shunt malfunction - CT head shows ventriculomegaly, repeat CT shows pneumocephalus - Frank (Neurosurgery PA with Dr. Linder) was consulted from the ER 06/23 -External Ventricular Drain placed 06/25 -Appreciate recommendations - Repeat CT brain: pneumocephalus - GCS 8 this AM, intermittent episodes of tachypnea - LR @ 75ml/hr - CBC/BMP wnl UTI - given rocephin in the ER - blood cultures pending - urine culture not collected - Received abx5 days - on Ancef Depression -continue home meds Pneumonia vs aspiration pneumonitis -Lungs BCTA on exam -Left lateral lobe involvement on CXR -Procalcitonin negative, hold antibiotic for now -Concern for aspiration vs involvement with the shunt, however the shunt stays on the right side of the chest down into the abd so lower suspicion for involvement Large calcification in Pelvis - Seen on shuntogram, likely 2/2 calcified uterine fibroid - Recommend outpatient follow up Disposition/LOS: > 2 midnights Code status: Full PCP: Ilia dvt ppx: lovenox
[2018-06-27] MEDS: Enoxaparin Sodium 40 MG/0.4 ML SYRINGE SC SCH (08:54)
--- NOTE | 2018-06-27 10:13 | PRG ---
DATE OF SERVICE: 06/27/2018 Ms. Roberts is hospital day 3 with placement of a ventriculostomy after admission for UTI. We have drained spinal fluid over the last 3 days. In my view, there has not been overall consistent trend or improvement with each drainage of spinal fluid. This morning she was barely arousable in bed. I did drain 25 mL. She did wince and complained of some headache shortly thereafter. I will re-evaluate her in a couple of hours and consider draining more spinal fluid from the ventriculostomy. I am inclined to remove the EVD today and move forward with followup in weeks, thereafter. Job ID: [id number]
[2018-06-27] MEDS ORDERED: hydrALAZINE 20 MG/ML VIAL SLOW IVP PRN (10:42)
[2018-06-27] MEDS ORDERED: Ondansetron PF 4 MG/2 ML Vial SLOW IVP PRN (10:47)
[2018-06-27] MEDS ORDERED: Ondansetron PF 4 MG/2 ML Vial SLOW IVP SCH (11:00)
--- NOTE | 2018-06-27 11:31 | PRG ---
DATE OF SERVICE: 06/27/2018 SUBJECTIVE: Ms. Roberts is again nonverbal this morning. She read over note of the Neurosurgery service. From our standpoint, her vital signs are stable. CBC and chemistries normal. We will continue to follow this difficult case with the Neurosurgery Service. Job ID: [id number]
--- NOTE | 2018-06-27 11:59 | PRG ---
DATE OF SERVICE: 06/27/2018 SUBJECTIVE: Ms. Roberts this morning is a little more interactive. She does open her eyes. She nods and shakes her head to answer questions and does so appropriately. It seems that she is complaining of significant nausea and constantly rubs on her stomach. We will start some IV Zofran p.r.n. for this purpose and see if she can start to tolerate p.o. intake. In particular, she does take a daily antidepressant, citalopram 20 mg and has not received that since she has been in the hospital. I would like to restart this as soon as possible as there is a chance of this could be contributing to her affect changes, over the last 48 hours, she has done extremely well, the EVD was placed, but since that time, has degraded significantly to a point where the daughter feels like she is actually worse than she has been in a long time. Our plan for now, and this was discussed with Dr. Linder is to continue periodic drainage, re-evaluate how she is doing tomorrow, and potentially remove the EVD at that time. Job ID: [id number]
[2018-06-27] MEDS: Citalopram 20 MG TAB PO SCH (12:54)
--- NOTE | 2018-06-27 18:54 | PRG ---
DATE OF SERVICE: 06/27/2018 SUBJECTIVE: Tisha Roberts remains more or less stable. Her mental status waxes and wanes. She was combative with her sister earlier today. OBJECTIVE: VITAL SIGNS: Her vital signs have been stable. She is protecting her airway. She apparently is eating well. Her blood pressure is 150/80, heart rate 65, respiratory rate is 18. This afternoon, oximetry is 94. LUNGS: Clear. HEART: Regular rhythm. ABDOMEN: Soft. LABORATORY DATA: White count is 6.9, hemoglobin 13.8, platelets 312. Sodium 141, potassium 3.7, chloride 108, bicarb 25, BUN 8, and creatinine 0.76. IMPRESSION: Normal pressure hydrocephalus with PANTOGRAPH TRANSFERRER shunt that is malfunctioned, now with an external drain in place. She will continue it per Neurosurgery. There are no acute airway protection or pulmonary issues. Job ID: [id number]
[2018-06-28] MEDS: CEFAZOLIN 2 GM in Premix Bag 1 BAG IVPB SCH ×2 (01:36→09:25)
[2018-06-28] MEDS: Lactated Ringer's 1,000 ML IV SCH (01:36)
--- NOTE | 2018-06-28 06:17 | PDOC.FM ---
- Subjective Subjective: Patient more awake and alert since yesterday afternoon. Nurse reports she was up , eating and chatting yesterday. She denies any pain this morning, speaks in full sentences, smiles, and laughs with her nurses. - Objective Vital Signs & Weight: Vital Signs (12 hours) Temp Pulse Ox 06/28/18 04:00 98.2 F 06/28/18 00:00 98.6 F 06/27/18 19:34 95 06/27/18 19:00 98.3 F Weight Admit Weight 86 kg Weight 86 kg Most Recent Monitor Data Heart Rate from ECG 63 NIBP 126/67 NIBP BP-Mean 86 Respiration from ECG 16 SpO2 97 I&O: 06/26/18 06/27/18 06/28/18 06:59 06:59 06:59 Intake Total 1892 1541 2949 Output Total 1980 1075 1490 Balance -88 466 1459 Result Diagrams: 06/27/18 05:12 06/27/18 05:12 Phys Exam - Physical Examination Constitutional: NAD HEENT: PERRLA, moist MMs Neck: no nodes, supple Respiratory: no wheezing, clear to auscultation bilateral placed on BNC overnight because sats were 88% Cardiovascular: RRR, no significant murmur Gastrointestinal: soft, non-tender, no distention, positive bowel sounds Musculoskeletal: no edema, pulses present Neurological: moves all 4 limbs Psychiatric: normal affect Deviation from normal: Alert and oriented to self. States she was in hospital, didn't know which. States its June 2018, but does not know day. Skin: no rash, normal turgor, cap refill <2 seconds Dx/Plan (1) Pneumocephalus Code(s): G93.89 - OTHER SPECIFIED DISORDERS OF BRAIN Status: Acute (2) MOTORIZED SQUAD LIEUTENANT (ventriculoperitoneal) shunt status Status: Acute (3) UTI (urinary tract infection) Status: Acute (4) Depression Code(s): F32.9 - MAJOR DEPRESSIVE DISORDER, SINGLE EPISODE, UNSPECIFIED Status : Chronic - Plan Plan: NPH with MOTORIZED SQUAD LIEUTENANT shunt malfunction - CT head shows ventriculomegaly, repeat CT shows pneumocephalus - Frank (Neurosurgery PA with Dr. Linder) was consulted from the ER 06/23 -External Ventricular Drain placed 06/25 -Appreciate recommendations - On Ancef while EVD in place, most likely will be removed today - Repeat CT brain: pneumocephalus - GCS 8 yesterday intermittent episodes of tachypnea. - More fluid pulled yesterday from drain via neurosurgery - Today GCS 15, Pt was up, alert and eating since yesterday around 2PM - LR @ 125ml/hr, will discontinue as patient well hydrated - CBC/BMP wnl UTI, resolved - given rocephin in the ER - blood cultures pending - urine culture not collected - Received abx5 days Depression -continue home meds Pneumonia vs aspiration pneumonitis -Lungs BCTA on exam -Left lateral lobe involvement on CXR -Procalcitonin negative, hold antibiotic for now -Concern for aspiration vs involvement with the shunt, however the shunt stays on the right side of the chest down into the abd so lower suspicion for involvement -Add incentive spirometry at bedside today Large calcification in Pelvis - Seen on shuntogram, likely 2/2 calcified uterine fibroid - Recommend outpatient follow up Disposition/LOS: > 2 midnights Code status: Full PCP: Ilia dvt ppx: lovenox Addendum - Attending - Attending Attestation Date/Time: 06/28/18 5530 I personally evaluated the patient and discussed the management with Dr. Negron. I agree with the History, Examination, Assessment and Plan documented above with any addition or exceptions noted below. Patient improved and has better mentation today. Answers questions appropriately and is conversive. Reports no nausea. Completing abx today for UTI. Await further recommendations from NSGY, but she is likely nearing point of stability for discharge to her assigned placement.
[2018-06-28] MEDS: Citalopram 20 MG TAB PO SCH (08:33)
[2018-06-28] MEDS: Enoxaparin Sodium 40 MG/0.4 ML SYRINGE SC SCH (08:35)
--- NOTE | 2018-06-28 09:29 | PRG ---
DATE OF SERVICE: 06/28/2018 SUBJECTIVE: Ms. Roberts is on the 4th day of her hospital stay. We have not drained any CSF over 24 hours now, and neurologically she has really made an incredible return. She actually looks to be relatively stable to when we had put the drain in the day on Saturday. She is interactive. She is talkative. She is appropriate. She answers all questions. She appears to be doing overall very well. I will remove EVD today and she can be transferred from the ICU at any time. We will discuss with Dr. Linder and arrange outpatient followup. Job ID: [id number]
--- NOTE | 2018-06-28 13:45 | EKG ---
Test Reason : Blood Pressure : / mmHG Vent. Rate : 070 BPM Atrial Rate : 070 BPM P-R Int : 166 ms QRS Dur : 088 ms QT Int : 426 ms P-R-T Axes : 059 -46 067 degrees QTc Int : 460 ms Normal sinus rhythm Left axis deviation Abnormal ECG Confirmed by RACHEL RAMÍREZ, MARIA DEL ROSARIO ([id number]), desk editor CHEMO NICHOLS ([id number]) on 06/28/2018 1:44:54 PM Referred By: Confirmed By:MARIA DEL ROSARIO RAMOS MD
--- NOTE | 2018-06-28 23:33 | PRG ---
DATE OF SERVICE: 06/28/2018 SUBJECTIVE: Tisha Roberts was laughing and joking this morning. Her mental status was significantly improved. Ventricular drain is out. OBJECTIVE: VITAL SIGNS: She is afebrile, heart rate 69, respiratory rate is 18, oximetry is 94, blood pressure has been stable. LUNGS: Clear. HEART: Regular rhythm. ABDOMEN: Soft. EXTREMITIES: She moves all extremities equally. IMPRESSION: ? VETERINARY DENTIST shunt malfunction. She is stable now. Neurosurgery is still following. She is tentatively scheduled to move out of Critical Care Unit. We will sign off once she moves out of critical care. Job ID: [id number]
--- NOTE | 2018-06-29 05:38 | PDOC.FM ---
- Subjective Subjective: Pt somnolent this morning. GCS 11 this morning. Patient's mentation continues to wax and wane. - Objective Vital Signs & Weight: Vital Signs (12 hours) Temp Pulse Resp BP Pulse Ox 06/29/18 04:00 98.1 F 74 16 165/86 H 95 06/28/18 23:32 98.0 F 68 18 153/82 H 97 06/28/18 19:47 98.1 F 80 18 148/70 H 95 06/28/18 19:43 95 Weight Admit Weight 86 kg Weight 86 kg Most Recent Monitor Data Heart Rate from ECG 82 NIBP 125/85 NIBP BP-Mean 98 Respiration from ECG 22 SpO2 93 I&O: 06/27/18 06/28/18 06/29/18 06:59 06:59 06:59 Intake Total 1541 2949 1824 Output Total 1075 1490 800 Balance 466 1459 1024 Result Diagrams: 06/27/18 05:12 06/27/18 05:12 Phys Exam - Physical Examination Constitutional: NAD Respiratory: no wheezing, clear to auscultation bilateral Cardiovascular: RRR, no significant murmur Gastrointestinal: soft, no distention, positive bowel sounds Musculoskeletal: no edema, pulses present Deviation from normal: somnolent Skin: normal turgor, cap refill <2 seconds Dx/Plan (1) Pneumocephalus Code(s): G93.89 - OTHER SPECIFIED DISORDERS OF BRAIN Status: Acute (2) STYLIST ASSISTANT (ventriculoperitoneal) shunt status Status: Acute (3) UTI (urinary tract infection) Status: Acute (4) Depression Code(s): F32.9 - MAJOR DEPRESSIVE DISORDER, SINGLE EPISODE, UNSPECIFIED Status : Chronic - Plan Plan: NPH with STYLIST ASSISTANT shunt malfunction - CT head shows ventriculomegaly, repeat CT shows pneumocephalus - Frank (Neurosurgery PA with Dr. Linder) was consulted from the ER 06/23 -External Ventricular Drain placed 06/25, removed 06/28 -Appreciate recommendations - Ancef now discontinued - Repeat CT brain: pneumocephalus - GCS 8 on 06/27 intermittent episodes of tachypnea. - GCS 15 on 06/28, Pt was up, alert and eating - Now GCS 11 this AM, patient more somnolent. Pts mentation continues to wax and wane. - Plans to go to rehab at Discharge - Will contact Neuro touch base with neuro about discharge planning UTI, resolved - given rocephin in the ER - blood cultures pending - urine culture not collected - Received abx5 days Depression -continue home meds Pneumonia vs aspiration pneumonitis -Lungs BCTA on exam -Left lateral lobe involvement on CXR -Procalcitonin negative, hold antibiotic for now -Concern for aspiration vs involvement with the shunt, however the shunt stays on the right side of the chest down into the abd so lower suspicion for involvement -Incentive spirometry at bedside Large calcification in Pelvis - Seen on shuntogram, likely 2/2 calcified uterine fibroid - Recommend outpatient follow up Disposition/LOS: > 2 midnights Code status: Full PCP: Ilia dvt ppx: lovenox Addendum - Attending - Attending Attestation Date/Time: 06/29/18 7674 I personally evaluated the patient and discussed the management with Dr. Negron. I agree with the History, Examination, Assessment and Plan documented above with any addition or exceptions noted below. Patient overall stable and improved from admission. Awaiting further NSGY recs and will work on placement as she is likely stable from discharge once cleared by NSGY.
[2018-06-29] MEDS: Enoxaparin Sodium 40 MG/0.4 ML SYRINGE SC SCH (08:19)
[2018-06-29] MEDS: Citalopram 20 MG TAB PO SCH (08:19)
--- NOTE | 2018-06-29 10:35 | PRG ---
DATE OF SERVICE: 06/28/2018 SUBJECTIVE: Ms. Roberts is hospital day 5. She was admitted initially for altered mental status and UTI. Subsequent to that time, we placed a ventriculostomy. We performed a large volume taps. This morning, she is sitting in chair, vibrant, alert, interactive, and she is feeding herself. This is in [place] contrast to late yesterday, where she was minimally interactive and difficult to arouse. The plan is to remove the ventriculostomy. She can be transferred to the floor. She can be discharged back to home at any time. We will follow up with her in the outpatient clinic setting to have a discussion as to whether permanent shunting is the right next step for her. Job ID: [id number] [facility]
--- NOTE | 2018-06-30 06:12 | PDOC.FM ---
- Subjective Subjective: Pt awake this morning, not responding to questions. Eyes opening and staring into space. No acute events overnight. - Objective Vital Signs & Weight: Vital Signs (12 hours) Temp Pulse Resp BP Pulse Ox 06/30/18 04:00 98.4 F 67 18 146/79 H 94 L 06/30/18 00:00 98.3 F 63 18 134/78 95 06/29/18 20:00 98.7 F 66 18 126/74 92 L 06/29/18 19:39 92 L Weight Admit Weight 86 kg Weight 86 kg Most Recent Monitor Data Heart Rate from ECG 82 NIBP 125/85 NIBP BP-Mean 98 Respiration from ECG 22 SpO2 93 I&O: 06/28/18 06/29/18 06/30/18 06:59 06:59 06:59 Intake Total 2949 1824 240 Output Total 1490 800 Balance 1459 1024 240 Result Diagrams: 06/27/18 05:12 06/27/18 05:12 Phys Exam - Physical Examination Constitutional: NAD HEENT: PERRLA Respiratory: no wheezing, clear to auscultation bilateral Cardiovascular: RRR, no significant murmur Gastrointestinal: soft, non-tender, no distention, positive bowel sounds Musculoskeletal: no edema, pulses present Deviation from normal: flat affect, does not respond verbally, localizes to pain , eyes open spont Skin: no rash, normal turgor Dx/Plan (1) Pneumocephalus Code(s): G93.89 - OTHER SPECIFIED DISORDERS OF BRAIN Status: Acute (2) MANAGER INFUSION (ventriculoperitoneal) shunt status Status: Acute (3) UTI (urinary tract infection) Status: Acute (4) Depression Code(s): F32.9 - MAJOR DEPRESSIVE DISORDER, SINGLE EPISODE, UNSPECIFIED Status : Chronic - Plan Plan: NPH with MANAGER INFUSION shunt malfunction - CT head shows ventriculomegaly, repeat CT shows pneumocephalus - Frank (Neurosurgery PA with Dr. Linder) was consulted from the ER 06/23 -External Ventricular Drain placed 06/25, removed 06/28 -Appreciate recommendations - Ancef now discontinued - From neuro standpoint, she can be discharged with follow up to see them - Repeat CT brain: pneumocephalus - Patient more somnolent yesterday. Pts mentation continues to wax and wane. Concern for some malingering when patient is unarousable, as she occasionally opens her eyes to look at her caretakers then quickly closes again. This is shortly after pt does not respond to gentle shaking or voice. - Plans to go to rehab at Discharge Physical deconditioning - PT/OT, Rehab placement UTI, resolved - given rocephin in the ER - blood cultures - no growth - urine culture not collected - Received abx5 days, now discontinued. Depression -continue home meds Pneumonia vs aspiration pneumonitis -Lungs BCTA on exam -Left lateral lobe involvement on CXR -Procalcitonin negative, hold antibiotic for now -Concern for aspiration vs involvement with the shunt, however the shunt stays on the right side of the chest down into the abd so lower suspicion for involvement -Incentive spirometry at bedside Large calcification in Pelvis - Seen on shuntogram, likely 2/2 calcified uterine fibroid - Recommend outpatient follow up Disposition/LOS: > 2 midnights Code status: Full PCP: Ilia dvt ppx: [facility] Addendum - Attending - Attending Attestation Date/Time: 06/30/18 [id number] I personally evaluated the patient and discussed the management with Dr. Negron. I agree with the History, Examination, Assessment and Plan documented above with any addition or exceptions noted below. Patient less responsive this morning. Will re-eval later in the day. She is otherwise doing well and NSGY has cleared her to return to outpatient follow up. We are working on outpatient placement for the patient. Vitals and labs stable.
[2018-06-30] MEDS: Enoxaparin Sodium 40 MG/0.4 ML SYRINGE SC SCH (08:09)
[2018-06-30] MEDS: Citalopram 20 MG TAB PO SCH (08:42)
--- NOTE | 2018-07-01 06:50 | PDOC.FM ---
- Subjective Subjective: Patient states she is feeling well this AM, daughter came yesterday and brought soup. She was up eating breakfast in bed, speaking short sentences, but full sentences. - Objective Vital Signs & Weight: Vital Signs (12 hours) Temp Pulse Resp BP Pulse Ox 06/30/18 19:44 93 L 06/30/18 19:34 98.0 F 68 18 144/78 H 93 L Weight Admit Weight 86 kg Weight 86 kg Most Recent Monitor Data Heart Rate from ECG 82 NIBP 125/85 NIBP BP-Mean 98 Respiration from ECG 22 SpO2 93 I&O: 06/29/18 06/30/18 07/01/18 06:59 06:59 06:59 Intake Total 1824 240 850 Output Total 800 Balance 1024 240 850 Result Diagrams: 06/27/18 05:12 06/27/18 05:12 Phys Exam - Physical Examination Constitutional: NAD HEENT: moist MMs Respiratory: no wheezing, clear to auscultation bilateral Incentive spirometry up to [id number] Cardiovascular: RRR, no significant murmur Gastrointestinal: soft, non-tender, no distention, positive bowel sounds Musculoskeletal: no edema, pulses present Neurological: non-focal, moves all 4 limbs Deviation from normal: flat affect Skin: normal turgor, cap refill <2 seconds Dx/Plan (1) Pneumocephalus Code(s): G93.89 - OTHER SPECIFIED DISORDERS OF BRAIN Status: Acute (2) EMPLOYMENT COUNSELOR (ventriculoperitoneal) shunt status Status: Acute (3) UTI (urinary tract infection) Status: Acute (4) Depression Code(s): F32.9 - MAJOR DEPRESSIVE DISORDER, SINGLE EPISODE, UNSPECIFIED Status : Chronic - Plan Plan: NPH with EMPLOYMENT COUNSELOR shunt malfunction - CT head shows ventriculomegaly, repeat CT shows pneumocephalus - Frank (Neurosurgery PA with Dr. Linder) was consulted from the ER 06/23 -External Ventricular Drain placed 06/25, removed 06/28 -Appreciate recommendations - Stable for D/c, will follow up with neuro outpatient - Repeat CT brain: pneumocephalus - Patient more somnolent yesterday. Pts mentation continues to wax and wane. - Plans to go to rehab at discharge, pending placement Physical deconditioning - PT/OT, Rehab placement UTI, resolved - given rocephin in the ER - blood cultures - no growth - urine culture not collected - Received abx5 days, now discontinued. Depression -continue home meds Pneumonia vs aspiration pneumonitis -Lungs BCTA on exam -Left lateral lobe involvement on CXR -Procalcitonin negative, hold antibiotic for now -Concern for aspiration vs involvement with the shunt, however the shunt stays on the right side of the chest down into the abd so lower suspicion for involvement -Incentive spirometry at bedside, used up to 1500/2000 this AM Large calcification in Pelvis - Seen on shuntogram, likely 2/2 calcified uterine fibroid - Recommend outpatient follow up Disposition/LOS: pending placement Code status: Full PCP: Ilia dvt ppx: [facility] Addendum - Attending - Attending Attestation Date/Time: 07/01/18 0910 I personally evaluated the patient and discussed the management with Dr. Negron. I agree with the History, Examination, Assessment and Plan documented above with any addition or exceptions noted below. Patient mentation improved this morning. She is stable for D/C from a NSGY standpoint. Awaiting acceptance to inpt rehab.
[2018-07-01] MEDS: Citalopram 20 MG TAB PO SCH (08:59)
[2018-07-01] MEDS: Enoxaparin Sodium 40 MG/0.4 ML SYRINGE SC SCH (09:00)
--- NOTE | 2018-07-01 11:52 | PQF ---
CLINICAL DOCUMENTATION IMPROVEMENT CLARIFICATION FORM: ICD-10 Updated PLEASE DO AN ADDENDUM TO THE PROGRESS NOTE WITH ANY DOCUMENTATION UPDATES OR ADDITIONS AND CARRY THROUGH TO DC SUMMARY. THANK YOU. DATE: 07/01/2018 ATTN: Dr. Negron/ Attending Dr. Reveles Please exercise your independent, professional judgment in responding to the clarification form. Clinical indicators are provided on the bottom of this form for your review Please check appropriate box(s) to clarify if the following diagnosis has been ruled in or ruled out: Pneumonia vs aspiration pneumonitis [ ] Ruled in diagnosis [ ] Continue to treat [ ] Resolved [ x ] Ruled out diagnosis [ ] Cannot rule out diagnosis [ x ] Other diagnosis: Atelectasis [ ] Unable to determine In addition, please specify: Present on Admission (POA): [ x ] Yes (Dx: atelectasis) [ ] No [ ] Unable to determine For continuity of documentation, please document condition throughout progress notes and discharge summary. Thank You. CLINICAL INDICATORS - SIGNS / SYMPTOMS / LABS PN 06/25-07/01: Pneumonia vs aspiration pneumonitis -Lungs BCTA on exam -Left lateral lobe involvement on CXR -Procalcitonin negative, hold antibiotic for now RISKS: H&P 06/24: PMHx: hydrocephaly, depression. 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 PN 07/01: NPH with CHILD CARE CENTRE DIRECTOR shunt malfunction. UTI resolved. TREATMENT: Order 06/25-06/28: Ancef 2 gm IV Thank you, Sarah (This form is maintained as a part of the permanent medical record) 2014 [address], [email or web address]. All Rights Reserved Sarah Hill RN, BSN [email or web address] Office: [phone] [facility]
--- NOTE | 2018-07-02 07:50 | PDOC.FM ---
- Subjective Subjective: Patient is sleeping this AM, does not answer questions. No acute events overnight. - Objective Vital Signs & Weight: Vital Signs (12 hours) Temp Pulse Resp BP Pulse Ox 07/02/18 04:00 98.5 F 70 20 157/75 H 95 07/02/18 00:00 98.7 F 80 20 129/70 94 L 07/01/18 20:00 93 L Weight Admit Weight 86 kg Weight 86 kg Most Recent Monitor Data Heart Rate from ECG 82 NIBP 125/85 NIBP BP-Mean 98 Respiration from ECG 22 SpO2 93 I&O: 07/01/18 07/02/18 07/03/18 06:59 06:59 06:59 Intake Total 850 Balance 850 Result Diagrams: 06/27/18 05:12 06/27/18 05:12 Phys Exam - Physical Examination Constitutional: NAD Patient resists examination Neck: no nodes, supple Respiratory: no wheezing, clear to auscultation bilateral Cardiovascular: RRR, no significant murmur Gastrointestinal: soft, non-tender, no distention, positive bowel sounds Musculoskeletal: no edema, pulses present Deviation from normal: sleeping, refuses to answer questions. Follows command to breathe deeply Difficult to examine as patient uncooperative. Skin: normal turgor, cap refill <2 seconds Dx/Plan (1) Pneumocephalus Code(s): G93.89 - OTHER SPECIFIED DISORDERS OF BRAIN Status: Acute (2) POWER PLANT TECHNICIAN (ventriculoperitoneal) shunt status Status: Acute (3) UTI (urinary tract infection) Status: Acute (4) Depression Code(s): F32.9 - MAJOR DEPRESSIVE DISORDER, SINGLE EPISODE, UNSPECIFIED Status : Chronic - Plan Plan: NPH with POWER PLANT TECHNICIAN shunt malfunction - CT head shows ventriculomegaly, repeat CT shows pneumocephalus - Frank (Neurosurgery PA with Dr. Linder) was consulted from the ER 06/23 -External Ventricular Drain placed 06/25, removed 06/28 -Appreciate recommendations - Stable for D/c, will follow up with neuro outpatient - Repeat CT brain: pneumocephalus - Pts mentation continues to wax and wane, suspect some malingering at times when patient does not want to be bothered - Plans to go to rehab at discharge, pending placement Physical deconditioning - PT/OT, Rehab placement UTI, resolved - given rocephin in the ER - blood cultures - no growth - urine culture not collected - s/p abx x 5 days Depression -continue home meds Atelectasis -Lungs BCTA on exam, likely atelectasis -Left lateral lobe concern on CXR -Procalcitonin negative, hold antibiotics -Concern for aspiration vs involvement with the shunt, however the shunt stays on the right side of the chest down into the abd so lower suspicion for involvement -Incentive spirometry at bedside Large calcification in Pelvis - Seen on shuntogram, likely 2/2 calcified uterine fibroid - Recommend outpatient follow up Disposition/LOS: pending placement Code status: Full PCP: Ilia dvt ppx: [facility] Addendum - Attending - Attending Attestation Date/Time: 07/02/18 8436 I personally evaluated the patient and discussed the management with Dr. Negron. I agree with the History, Examination, Assessment and Plan documented above with any addition or exceptions noted below. Patient doing well. Awaiting final inpt rehab screening hopefully today and discharge once accepted.
[2018-07-02] MEDS: Enoxaparin Sodium 40 MG/0.4 ML SYRINGE SC SCH (10:28)
[2018-07-02] MEDS: Citalopram 20 MG TAB PO SCH (14:05)
--- NOTE | 2018-07-03 06:48 | PDOC.FM ---
- Subjective Subjective: Patient opens eyes to voice this AM, responds to commands. Does not speak. - Objective Vital Signs & Weight: Weight Admit Weight 86 kg Weight 86 kg Most Recent Monitor Data Heart Rate from ECG 82 NIBP 125/85 NIBP BP-Mean 98 Respiration from ECG 22 SpO2 93 I&O: 07/01/18 07/02/18 07/03/18 06:59 06:59 06:59 Intake Total 850 Balance 850 Result Diagrams: 06/27/18 05:12 06/27/18 05:12 Phys Exam - Physical Examination Constitutional: NAD Respiratory: no wheezing, clear to auscultation bilateral Cardiovascular: RRR, no significant murmur Gastrointestinal: soft, non-tender, no distention, positive bowel sounds Musculoskeletal: no edema, pulses present Deviation from normal: flat affect, normal for her. Responds to commands. Opens eyes to voice. does not speak Skin: no rash, normal turgor Dx/Plan (1) Pneumocephalus Code(s): G93.89 - OTHER SPECIFIED DISORDERS OF BRAIN Status: Acute (2) CORPORATE LIBRARIAN (ventriculoperitoneal) shunt status Status: Acute (3) UTI (urinary tract infection) Status: Acute (4) Depression Code(s): F32.9 - MAJOR DEPRESSIVE DISORDER, SINGLE EPISODE, UNSPECIFIED Status : Chronic - Plan Plan: NPH with CORPORATE LIBRARIAN shunt malfunction - CT head shows ventriculomegaly, repeat CT shows pneumocephalus - Frank (Neurosurgery PA with Dr. Linder) was consulted from the ER 06/23 -External Ventricular Drain placed 06/25, removed 06/28 -Appreciate recommendations - table for D/c, will follow up with neuro outpatient - Pts mentation continues to wax and wane, suspect some malingering at times when patient does not want to be bothered - Rehab denied patient, family will need to come in to sign paperwork for her to go to SNF Physical deconditioning - PT/OT, SNF placement UTI, resolved - given rocephin in the ER - blood cultures - no growth - urine culture not collected - s/p abx x 5 days Depression -continue home meds Atelectasis -Lungs BCTA on exam, likely atelectasis -Left lateral lobe concern on CXR -Procalcitonin negative, hold antibiotics -Concern for aspiration vs involvement with the shunt, however the shunt stays on the right side of the chest down into the abd so lower suspicion for involvement -Incentive spirometry at bedside Large calcification in Pelvis - Seen on shuntogram, likely 2/2 calcified uterine fibroid - Recommend outpatient follow up Disposition/LOS: pending placement Code status: Full PCP: Ilia dvt ppx: [facility] Addendum - Attending - Attending Attestation Date/Time: 07/03/18 3707 I personally evaluated the patient and discussed the management with Dr. Negron. I agree with the History, Examination, Assessment and Plan documented above with any addition or exceptions noted below. Patient stable. Rehab declined patient, working on SNF placement. WIll be stable for discharge once approved.
[2018-07-03] MEDS: Enoxaparin Sodium 40 MG/0.4 ML SYRINGE SC SCH (10:44)
[2018-07-03] MEDS: Citalopram 20 MG TAB PO SCH (10:46)
--- NOTE | 2018-07-04 06:59 | PDOC.FM ---
- Subjective Subjective: Patient awake and responds to commands this AM. Does not answer questions. - Objective Vital Signs & Weight: Vital Signs (12 hours) Temp Pulse Resp BP Pulse Ox 07/03/18 19:16 98.9 F 73 20 146/76 H 93 L Weight Admit Weight 86 kg Weight 86 kg Most Recent Monitor Data Heart Rate from ECG 82 NIBP 125/85 NIBP BP-Mean 98 Respiration from ECG 22 SpO2 93 Result Diagrams: 06/27/18 05:12 06/27/18 05:12 Phys Exam - Physical Examination Constitutional: NAD Respiratory: no wheezing, clear to auscultation bilateral Cardiovascular: RRR, no significant murmur Gastrointestinal: soft, non-tender, no distention, positive bowel sounds Musculoskeletal: no edema, pulses present Neurological: non-focal, moves all 4 limbs Deviation from normal: flat affect Skin: normal turgor, cap refill <2 seconds Dx/Plan (1) Pneumocephalus Code(s): G93.89 - OTHER SPECIFIED DISORDERS OF BRAIN Status: Acute (2) COMMUNITY HEALTH PROGRAM REPRESENTATIVE (ventriculoperitoneal) shunt status Status: Acute (3) UTI (urinary tract infection) Status: Acute (4) Depression Code(s): F32.9 - MAJOR DEPRESSIVE DISORDER, SINGLE EPISODE, UNSPECIFIED Status : Chronic - Plan Plan: NPH with COMMUNITY HEALTH PROGRAM REPRESENTATIVE shunt malfunction - CT head shows ventriculomegaly, repeat CT shows pneumocephalus - Frank (Neurosurgery PA with Dr. Linder) was consulted from the ER 06/23 -External Ventricular Drain placed 06/25, removed 06/28 -Appreciate recommendations - table for D/c, will follow up with neuro outpatient - Pts mentation continues to wax and wane, patient still responds to commands though at times she does not speak - Ate 100% of dinner last night - Rehab denied patient, placement at SNF pending - Please keep orienting patient, keep window curtains open Physical deconditioning - PT/OT, SNF placement UTI, resolved - given rocephin in the ER - blood cultures - no growth - urine culture not collected - s/p abx x 5 days Depression -continue home meds Atelectasis -Lungs BCTA on exam, likely atelectasis -Left lateral lobe concern on CXR -Procalcitonin negative, hold antibiotics -Concern for aspiration vs involvement with the shunt, however the shunt stays on the right side of the chest down into the abd so lower suspicion for involvement -Incentive spirometry at bedside Large calcification in Pelvis - Seen on shuntogram, likely 2/2 calcified uterine fibroid - Recommend outpatient follow up Disposition/LOS: pending placement Code status: Full PCP: Ilia de santiago ppx: [facility] Addendum - Attending - Attending Attestation Date/Time: 07/04/18 7782 I personally evaluated the patient and discussed the management with Dr. Negron. I agree with the History, Examination, Assessment and Plan documented above with any addition or exceptions noted below. Patient here for acute on chronic encephalopathy due to COMMUNITY HEALTH PROGRAM REPRESENTATIVE shunt malfunction. She has been doing well and stable for the last few days. Pending placement and stable for discharge once she is approved for a facility.
[2018-07-04] MEDS: Citalopram 20 MG TAB PO SCH (07:39)
[2018-07-04] MEDS: Enoxaparin Sodium 40 MG/0.4 ML SYRINGE SC SCH (07:40)
[2018-07-04 08:00] VITALS: BP 125/74; TEMP 98.5
--- NOTE | 2018-07-04 16:45 | DIS ---
DATE OF ADMISSION: 06/24/2018 DATE OF DISCHARGE: 07/04/2018 RESIDENT: Paige Negron MD ADMITTING ATTENDING: Yamel Dupont MD. CONSULTS: 1. Dr. Linder, Neurology, 06/24/2018. 2. Dr. Rodrigues, pulmonology, 06/25/2018. PROCEDURES: 1. Brain CT 06/23/2018; impression ventriculomegaly/hydrocephalus with dilatation of the lateral ventricles as well as the 3rd ventricle. A ventriculoperitoneal shunt catheter was noted in place with the tip terminating at the anterior aspect of the 3rd ventricle. 2. Chest x-ray 06/23/2018; impression pneumonia versus aspiration pneumonitis, left lung base. Followup to resolution is recommended. Minimal patchy density seen at the lateral left lung base, which may be related to focal areas, pneumonia or aspiration pneumonitis. The lungs are otherwise clear. Ventriculoperitoneal shunt catheter seen overlying the chest. Vascular calcifications seen in the thoracic aorta. 3. Shuntogram 06/23/2018; impression right-sided ventriculoperitoneal shunt catheter, which does appear intact throughout its course. The tip overlies the pelvis as described as above. The tip is not seen well due to catheter tip overlying a large calcification in the pelvis, probably related to calcified uterine fibroid. 4. External ventriculostomy placement 06/25/2018. 5. Brain CT 06/26/2018. Re-demonstration of [id number] hydrocephalus. Mild volume intraventricular air and hemorrhage is demonstrated. Postprocedural pneumocephalus has developed. Interval placement of left frontal approach ventricular catheter. Recommend continued imaging followup. PRIMARY DIAGNOSES: 1. 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 2. Physical deconditioning. 3. Pneumocephalus 4. Likely hypoactive delirium. SECONDARY DIAGNOSES: 1. Urinary tract infection, resolved. 2. Depression. 3. Atelectasis. 4. Large calcification in the pelvis, likely uterine fibroids. DISCHARGE MEDICATIONS: Citalopram 20 mg p.o. daily. HISTORY OF PRESENT ILLNESS AND HOSPITAL COURSE: A 72-year-old female here for decreased activity over the past 2 days. Daughter Jessica provided the history. The patient had a history of ventricular shunt what sounds like hydrocephalus in 2009. The daughter reported that she her mentation began declining in 2017, which she received a new ventriculoperitoneal shunt in January 2018. Since that time, the patient has had episodes of altered mentation. Sometime she will have be able to hold abbreviated conversations, other times she will be drowsy and not answer questions. She is a patient of Dr. Morillo since 2017 and has also been seeing Dr. Linder for her hydrocephalus and ventricular shunt management. Per daughter, she has had about 45 mL of fluid drained at the end of May 2018, after having problems with decreased activity level. After that, her mood and activity improved, but she gradually became less and less interactive. During this time, she has also had decreased food intake. Dr. Linder was consulted and placed an external ventricular drain on 06/2012 and removed on 06/28/2018. The patient was on Ancef while the drain was in place. The patient had multiple varying volumes of fluid removal from her ventricle without corresponding changes in mentation from the patient. Her mentation actually briefly improved prior to drain placement. The patient's mentation continued to wax and wane. On discharge, the patient at times will be eating, sitting in a chair, and able to hold a short conversation ; at other times, the patient will lay in bed with flat affect and will not speak, however she will respond to commands and usually open her eyes. The patient has physical deconditioning. She was denied for placement in a rehab facility, so she was placed at a custodial facility. We recommend continue to orient the patient, keep the window curtains open and keep the patient on a schedule. UTI. The patient was treated with antibiotics for 5 days. Urine culture was not collected. We are unable to change sensitivity based on the urine culture. Her blood culture showed no growth. Depression. The patient was continued on home medications. Atelectasis. The patient's lungs were bilaterally clear to auscultation on exam. On chest x-ray, there was concern for left lateral lobe pneumonia. However, procalcitonin was negative and lungs were BCTA, so antibiotics were stopped after her initial dose of Rocephin. The patient was given incentive spirometry at bedside. The patient had a large calcification in the pelvis, seen on the shuntogram, likely secondary to calcified uterine fibroid. We recommend outpatient followup. DISPOSITION: Stable. DISCHARGE INSTRUCTIONS: Location: [facility] facility. Diet: Regular. Activity: As tolerated. Followup: With Dr. Morillo in 1 week. Therapies: Occupational and physical therapy. Job ID: [id number] [id number]
== END 2018-07-04 13:08 | DRG 26 ==
LOC: ERS 20:44 → CCU 23:38 → ERHOLD 06-24 00:36 → SURG A 06-24 14:40 → CCU 06-25 07:57 → T4-A 06-28 14:21
PROVIDERS: ADMIT Student in an Organized Health Care Education/Training Program; ATTEND Student in an Organized Health Care Education/Training Program
PROC: 009600Z Drainage of Cerebral Ventricle with Drainage Device, Open Approach (ICD-10-PCS; principal; 2018-06-25)
DX: T85.09XA Other mechanical complication of ventricular intracranial (communicating) shunt, initial encounter (principal); N39.0 Urinary tract infection, site not specified; G91.2 (Idiopathic) normal pressure hydrocephalus; J98.11 Atelectasis; G93.40 Encephalopathy, unspecified; F06.1 Catatonic disorder due to known physiological condition; F32.9 Major depressive disorder, single episode, unspecified; Z91.19 Patient's noncompliance with other medical treatment and regimen; D25.9 Leiomyoma of uterus, unspecified; G93.89 Other specified disorders of brain
CPT/HCPCS: 36415; 36416; 51701; 70450; 71045; 75809; 80048; 80053; 81003; 81015; 82550; 83605; 83690; 83880; 84145; 84146; 84484; 85025; 87040; 87804; 93005; 96365; A4353; J0360; J0690; J0696; J1650; J2405; J7050